=== PATIENT | female | born 1985 ===

== ENCOUNTER → 2017-12-10 08:51 | Day surgery (SDC) | payer BC ==
[~2017-12-10 08:51] MED LIST: Buffered Lidocaine 0.9% SYRIN* 5 ML/SYR SYRINGE INTRADERM ONE; Dexamethasone IV* 4 MG/ML 1 ML (4 MG) IV SLOW PU ONE; Dexamethasone IV* 4 MG/ML 1 ML (4 MG) ONE; DiMENhydriNATE IV* 50 MG/ML VIAL IV PUSH PRN; Famotidine TAB* 20 MG ONE; Famotidine TAB* 20 MG PO ONE; HYDROcodone/ACET. 7.5/325 LIQ* 15 ML UDC ONE; Midazolam* 1 MG/ML 2 ML VIAL (2 MG) ONE; Naloxone* 0.4 MG/ML 1 ML VIAL IV PRN; fentaNYL* 50 MCG/ML 2 ML VIAL (100 MCG VIAL) ONE
[2017-12-10] MEDS: fentaNYL* 50 MCG/ML 2 ML VIAL (100 MCG VIAL) IV PRN ×2 (12:03→12:21)
[2017-12-10 13:10] VITALS: BP 118/74
--- NOTE | 2017-12-10 16:19 | OP ---
DATE OF OPERATION: 12/10/17 - SDS DATE OF : 83 SURGEON: Leroy Kiser MD PRE-OP DIAGNOSIS: Chronic tonsillitis. POST-OP DIAGNOSIS: Chronic tonsillitis. OPERATIVE PROCEDURE: Tonsillectomy. BRIEF HISTORY: This is a 32-year-old with chronic recurring tonsillitis with frequent tonsilliths who elected for surgical therapy. DESCRIPTION OF PROCEDURE: The patient was taken to the operating room, general anesthesia was given, patient intubated. Tongue, mandible, soft palate were retracted. Coblator was used to remove the tonsils. Once hemostasis was obtained, patient was awakened and sent to the recovery room in stable condition. Instrument and sponge count correct. Blood loss minimal. [id number]/CPS #: [id number] [facility]
== END | disposition home or self-care (01) ==
LOC: OR 08:51
PROVIDERS: ATTEND Otolaryngology
DX: J35.01 Chronic tonsillitis (principal)
CPT/HCPCS: 88304; A9270-GY; J1100; J2250; J3010